=== PATIENT | female | born 1980 | race Two or more races ===

== ENCOUNTER 2024-01-16 18:56 | Emergency (ER) | payer OTHER ==
[~2024-01-16] VITALS: Ht 167.6 cm; Wt 95.3 kg
[2024-01-16] MEDS ORDERED: ACETAMINOPHEN ES 500 MG TABLET ONE (19:25)
[2024-01-16] MEDS ORDERED: KETOROLAC TROMETHAMINE INJ 30 MG/ML VIAL ONE (19:25)
[2024-01-16] MEDS: KETOROLAC TROMETHAMINE INJ 30 MG/ML VIAL IV ONE (19:30)
[2024-01-16] MEDS: ACETAMINOPHEN ES 500 MG TABLET PO ONE (19:30)
[2024-01-16] MEDS ORDERED: NAPR-1009 PO (21:10)
[2024-01-16 21:55] VITALS: BP 171/87; TEMP 98.5; O2SAT 98
== END 2024-01-16 21:45 | disposition home or self-care (01) ==
LOC: ER 19:03
DX: M77.32 Calcaneal spur, left foot (principal); M25.775 Osteophyte, left foot; M19.072 Primary osteoarthritis, left ankle and foot
CPT/HCPCS: 99285; 96374; 93971; 73610; 73630; J1885